=== PATIENT | male | born 1990 | race Caucasian/White ===

== ENCOUNTER → 2025-07-04 13:02 | Outpatient (BNVA) | payer MEDICAID, SELFPAY | PROVIDERS: PCP Nurse Practitioner Family; Visit Provider Nurse Practitioner Family | DX: Z00.00 Encounter for general adult medical examination without abnormal findings (principal); Z13.6 Encounter for screening for cardiovascular disorders; R60.0 Localized edema | CPT/HCPCS: 80053; 80061; 84443; 85025 ==